=== PATIENT | female | born 1950 | race Two or more races ===

== ENCOUNTER 2017-12-15 10:31 | Outpatient (CLI) | payer OTHER | END 2017-12-15 10:43 | disposition home or self-care (01) | LOC: MAMO-SONO 10:31 | DX: Z12.31 Encounter for screening mammogram for malignant neoplasm of breast (principal); Z87.898 Personal history of other specified conditions ==

== ENCOUNTER 2017-12-18 15:06 | Outpatient (CLI) | payer OTHER | END 2017-12-18 15:12 | disposition home or self-care (01) | LOC: NUCLEAR 15:06 | DX: M81.0 Age-related osteoporosis without current pathological fracture (principal) ==

== ENCOUNTER 2017-12-18 15:56 | Outpatient (CLI) | payer OTHER | END 2017-12-18 16:03 | disposition home or self-care (01) | LOC: RAD 15:56 | DX: M15.8 Other polyosteoarthritis (principal) ==

== ENCOUNTER 2019-08-25 08:08 | Outpatient (CLI) | payer OTHER | END 2019-08-25 08:14 | disposition home or self-care (01) | LOC: SONOGRAMA 08:08 → MAMO-SONO 08:15 | PROVIDERS: ATTEND Internal Medicine Gastroenterology | DX: R10.84 Generalized abdominal pain (principal) ==

== ENCOUNTER 2019-11-29 08:12 | Outpatient (CLI) | payer OTHER | END 2019-11-29 08:26 | disposition home or self-care (01) | LOC: NUCLEAR 08:12 | PROVIDERS: ATTEND Internal Medicine Gastroenterology | DX: K81.1 Chronic cholecystitis (principal) | CPT/HCPCS: 78227; A9537; J2805 ==

== ENCOUNTER 2020-07-11 09:37 | Outpatient (CLI) | payer OTHER | END 2020-07-11 09:47 | disposition home or self-care (01) | LOC: MAMO-SONO 09:37 | PROVIDERS: ATTEND General Practice | DX: Z12.31 Encounter for screening mammogram for malignant neoplasm of breast (principal) ==

== ENCOUNTER 2021-07-05 13:39 | Outpatient (CLI) | payer OTHER | END 2021-07-05 13:40 | disposition home or self-care (01) | LOC: RAD 13:39 | PROVIDERS: ATTEND General Practice | DX: M15.9 Polyosteoarthritis, unspecified (principal) ==

== ENCOUNTER 2022-11-21 09:44 | Outpatient (CLI) | payer OTHER | END 2022-11-21 09:50 | disposition home or self-care (01) | LOC: MAMO-SONO 09:44 | PROVIDERS: ATTEND General Practice | DX: Z12.31 Encounter for screening mammogram for malignant neoplasm of breast (principal) ==